=== PATIENT | female | born 1950 | race Hispanic/Latino ===

== ENCOUNTER → 2022-10-11 | Outpatient (CLI) | payer OTHER | END | disposition home or self-care (01) | LOC: RAH 13:38 | PROVIDERS: ATTEND Orthopaedic Surgery | DX: M17.12 Unilateral primary osteoarthritis, left knee (principal); M85.80 Other specified disorders of bone density and structure, unspecified site; M25.40 Effusion, unspecified joint | CPT/HCPCS: 73700 ==

== ENCOUNTER 2022-10-20 08:21 | Observation (INO) | payer OTHER, MEDICARE ==
[2022-10-14 11:52] LABS: BASOPHILS % (AUTO) 1.2 % (0.0-5.0); EOSINOPHILS % (AUTO) 4.5 % (0.0-8.0); HEMATOCRIT 38.9 % (36-48); MEAN CORPUSCULAR HEMOGLOBIN 27.1 pg (27.0-33.0); MEAN CORPUSCULAR HGB CONC 31.9 g/dL (32.0-36.0); MEAN CORPUSCULAR VOLUME 84.9 fL (79-99); MONOCYTES % (AUTO) 9.9 % (3.0-13.0); NEUTROPHILS % (AUTO) 58.1 % (40.0-77.0); PLATELET COUNT (AUTO) 279 K/uL (130-400); RED BLOOD CELL COUNT(AUTO) 4.58 MIL/uL (4.00-5.50); RED CELL DISTRIBUTION WIDTH 15.3 % (11.0-15.5); WHITE BLOOD COUNT (AUTO) 6.7 K/uL (4.8-10.8)
[2022-10-14 12:02] LABS: CREATININE 0.8 mg/dL (0.5-1.5); POTASSIUM 3.4 mmol/L (3.5-5.1)
[2022-10-14 12:08] LABS: INR 1.09 (0.85-1.15); PROTHROMBIN TIME 12.6 SEC (9.6-11.6)
[2022-10-14 12:10] LABS: PARTIAL THROMBOPLASTIN TIME 28.5 SEC (26.3-35.5)
[2022-10-14 12:50] VITALS: BP 141/80
[~2022-10-20] VITALS: Ht 162.6 cm; Wt 91.4 kg
[2022-10-20] VITALS (23 sets, daily range): BP systolic 91–188; BP diastolic 50–100
[~2022-10-20 08:21] MED LIST: ASPI-1443 PO; CEFAZOLIN SODIUM 1 GM VIAL IVPB PRN; CHOLECALCIFEROL PO; CITA10TA89 PO; DICL100G32 TP; EMPA25TA PO; EZET10TA48 PO; GABA300C PO; HYDR25TA PO; LACTATED RINGERS 1000ML 1,000 ML IV SCH; LEVO175C2 PO; LORA-192 PO; LOSA100T59 PO; TRAM50TA4 PO; VITA1TAB22 PO; [UNRECOGNIZED DRUG - OTHER] IV
[2022-10-20] MEDS ORDERED: 0.9%NACL 1000ML 1,000 ML IV ONE (08:35)
[2022-10-20] MEDS ORDERED: LIDOCAINE PF 100MG/5ML (2%) SYRINGE 5ML ONE (13:22)
[2022-10-20] MEDS ORDERED: SUCCINYLCHOLINE CHLORIDE 20 MG/ML 10 ML VIAL ONE (13:22)
[2022-10-20] MEDS ORDERED: PROPOFOL 10 MG/ML 20ML VIAL IV ONE (13:23)
[2022-10-20] MEDS ORDERED: ROCURONIUM 10MG/1ML SYR 10 MG/ML ML ONE (13:23)
[2022-10-20] MEDS ORDERED: FENTANYL CITRATE PF 50 MCG/1 ML 2ML VIAL ONE (13:23)
[2022-10-20] MEDS ORDERED: MIDAZOLAM HCL 1 MG/ML 2ML VIAL ONE (13:23)
[2022-10-20] MEDS ORDERED: TRANEXAMIC ACID 1000MG/10ML ONE (13:40)
[2022-10-20] MEDS ORDERED: CEFAZOLIN SODIUM 2 GM VIAL IVPB ONE (14:20)
[2022-10-20] MEDS ORDERED: TRANEXAMIC ACID 1000MG/10ML IV ONE (14:21)
[2022-10-20] MEDS ORDERED: LORAZEPAM 1 MG TABLET PO PRN (14:30)
[2022-10-20] MEDS ORDERED: NEOSTIGMINE 5MG/5ML SYR IV ONE (16:04)
[2022-10-20] MEDS ORDERED: GLYCOPYRROLATE 1 MG/5 ML SYRINGE ONE (16:04)
[2022-10-20] MEDS ORDERED: MEPERIDINE-PF 50 MG/ML SYG ONE (16:26)
[2022-10-20] MEDS ORDERED: ACETAMINOPHEN 1,000 MG/100 ML VIAL IV ONE (16:44)
[2022-10-20] MEDS ORDERED: POTASSIUM CHLORIDE 10% ELIXIR 20 MEQ/15 ML UDCUP PO PRN (17:00)
[2022-10-20] MEDS ORDERED: POTASSIUM CHLORIDE 20MEQ/100ML 100 ML IV PRN (17:00)
[2022-10-20] MEDS ORDERED: HYDROCODONE/ACETAMINOPHEN 5/325 MG TAB PO PRN (17:00)
[2022-10-20] MEDS ORDERED: MORPHINE 4 MG SYG IVP PRN (17:00)
[2022-10-20] MEDS ORDERED: ONDANSETRON 4MG INJ IVP PRN (17:00)
[2022-10-20] MEDS: ACETAMINOPHEN 1,000 MG/100 ML VIAL IV SCH ×2 (17:00→23:00)
[2022-10-20] MEDS: HYDRALAZINE 20MG/ML VIAL ONE ×2 (17:22→18:12)
[2022-10-20] MEDS: CYCLOBENZAPRINE HCL 10 MG TABLET PO PRN (18:12)
[2022-10-20] MEDS: 0.9%NACL 1000ML 1,000 ML IV SCH ×2 (18:14→20:55)
[2022-10-20] MEDS: TRAMADOL HCL 50 MG TABLET PO SCH ×2 (18:14→23:36)
[2022-10-20] MEDS: ASPIRIN 81 MG EC TAB PO SCH (21:02)
[2022-10-20] MEDS: GABAPENTIN 300 MG CAPSULE PO PRN (21:02)
[2022-10-20] MEDS: FAMOTIDINE 20MG TAB PO SCH (21:02)
[2022-10-20] MEDS: IBUPROFEN 800MG + NS 250ML IV SCH (21:03)
[2022-10-20] MEDS: CEFAZOLIN SODIUM 2 GM VIAL IVPB SCH (23:12)
[2022-10-21] VITALS (15 sets, daily range): BP systolic 130–151; BP diastolic 59–91
[2022-10-21] MEDS: IBUPROFEN 800MG + NS 250ML IV SCH ×2 (04:19→12:46)
[2022-10-21 04:35] LABS: MEAN CORPUSCULAR HGB CONC 31.8 g/dL (32.0-36.0); MEAN CORPUSCULAR VOLUME 84.8 fL (79-99); RED BLOOD CELL COUNT(AUTO) 3.89 MIL/uL (4.00-5.50); RED CELL DISTRIBUTION WIDTH 15.6 % (11.0-15.5); WHITE BLOOD COUNT (AUTO) 12.3 K/uL (4.8-10.8)
[2022-10-21 04:50] LABS: CREATININE 0.7 mg/dL (0.5-1.5); POTASSIUM 3.6 mmol/L (3.5-5.1)
[2022-10-21] MEDS: ACETAMINOPHEN 1,000 MG/100 ML VIAL IV SCH (05:44)
[2022-10-21] MEDS: TRAMADOL HCL 50 MG TABLET PO SCH ×3 (05:45→18:42)
[2022-10-21] MEDS: CEFAZOLIN SODIUM 2 GM VIAL IVPB SCH (06:29)
[2022-10-21] MEDS: LEVOTHYROXINE SODIUM 175 MCG PO SCH (09:00)
[2022-10-21] MEDS: CYCLOBENZAPRINE HCL 10 MG TABLET PO PRN ×2 (09:17→15:19)
[2022-10-21] MEDS: KCL 20 MEQ ERTAB PO PRN ×2 (10:18→15:05)
[2022-10-21] MEDS: FAMOTIDINE 20MG TAB PO SCH ×2 (10:18→20:23)
[2022-10-21] MEDS: ASPIRIN 81 MG EC TAB PO SCH (10:18)
[2022-10-21] MEDS: POLYETHYLENE GLYCOL 3350 17 GM POWD.PACK PO SCH (10:19)
[2022-10-21] MEDS: LOSARTAN 100 MG TABLET PO SCH (10:25)
[2022-10-21] MEDS: EZETIMIBE 10 MG TAB PO SCH (10:25)
[2022-10-21] MEDS: HYDROCHLOROTHIAZIDE 25 MG TABLET PO SCH (10:25)
[2022-10-21] MEDS: EMPAGLIFLOZIN 25MG TABLET PO SCH (10:25)
[2022-10-21] MEDS: 0.9%NACL 1000ML 1,000 ML IV SCH (13:00)
[2022-10-21] MEDS: HYDROCODONE/ACETAMINOPHEN 10/325 MG TAB PO PRN ×2 (15:03→20:23)
[2022-10-21] MEDS: GABAPENTIN 300 MG CAPSULE PO PRN (20:23)
[2022-10-22] MEDS: TRAMADOL HCL 50 MG TABLET PO SCH ×3 (00:27→10:47)
[2022-10-22 03:10] VITALS: BP 154/77
[2022-10-22 08:00] VITALS: BP 144/82
[2022-10-22] MEDS: LEVOTHYROXINE SODIUM 175 MCG PO SCH (09:00)
[2022-10-22] MEDS: LOSARTAN 100 MG TABLET PO SCH (10:45)
[2022-10-22] MEDS: FAMOTIDINE 20MG TAB PO SCH (10:45)
[2022-10-22] MEDS: EZETIMIBE 10 MG TAB PO SCH (10:45)
[2022-10-22] MEDS: EMPAGLIFLOZIN 25MG TABLET PO SCH (10:45)
[2022-10-22] MEDS: HYDROCHLOROTHIAZIDE 25 MG TABLET PO SCH (10:45)
[2022-10-22] MEDS: POLYETHYLENE GLYCOL 3350 17 GM POWD.PACK PO SCH (10:46)
[2022-10-22 11:24] VITALS: BP 159/88
[2022-10-22] MEDS ORDERED: TRAM50TA4 PO (13:37)
[2022-10-22] MEDS ORDERED: HYDR-4060 PO (13:37)
[2022-10-22] MEDS: GABAPENTIN 300 MG CAPSULE PO PRN (13:39)
[2022-10-22] MEDS: HYDROCODONE/ACETAMINOPHEN 10/325 MG TAB PO PRN (13:40)
[2022-10-22 16:31] VITALS: BP 126/74
[2022-10-22] MEDS ORDERED: ENOXAPARIN SODIUM 30 MG/0.3 ML SQ SCH (19:00)
[2022-10-23] MEDS ORDERED: BISACODYL 10 MG SUPP.RECT RC PRN (17:00)
== END 2022-10-22 19:45 ==
LOC: DAH 08:21 → DAHIP 08:22 → DAH 08:22 → 4DH 17:29
PROVIDERS: ADMIT Orthopaedic Surgery; ATTEND Orthopaedic Surgery
DX: M17.12 Unilateral primary osteoarthritis, left knee (principal); Z20.822 Contact with and (suspected) exposure to COVID-19; E66.3 Overweight; Z68.34 Body mass index [BMI] 34.0-34.9, adult; Z79.82 Long term (current) use of aspirin; Z79.899 Other long term (current) drug therapy
CPT/HCPCS: 80048 ×2; 85025; 85610; 85730; 87426; 36415 ×2; 87641; 27447; 96365; 96366 ×3; 96375 ×2; 96367 ×2; 96368; 64450; 82948 ×10; 97039 ×3; 85027; 70450; 73700; 97161; 97116 ×2; 97530; A6260; G0378 ×49; A4663; J7030 ×2; J3010; J0690 ×4; J3490 ×3; J2710; J0330; J2001; J0360; J2250; J2704; J2175; J1741 ×3; A6223; G0168; A4649 ×3; A6212; C1776 ×3; A5120; A4215; A4223; A4222; A4221; J2270